=== PATIENT | female | born 1975 | race African-American/Black ===

== ENCOUNTER 2018-11-05 19:51 | Emergency (ER) | payer SELFPAY ==
[~2018-11-05] VITALS: Ht 170.2 cm; Wt 70.0 kg
[2018-11-05] MEDS ORDERED: SODIUM CHLORIDE 0.9% 1,000 ML IV ONE (20:02)
[2018-11-05] MEDS ORDERED: HALOPERIDOL LACTATE 5MG/ML VIAL IM ONE (20:15)
[2018-11-05] MEDS ORDERED: LORAZEPAM 2MG/ML CPJ IM ONE (20:30)
[2018-11-05] MEDS ORDERED: DIPHENHYDRAMINE 50MG/ML VIAL IM ONE (20:30)
[2018-11-05 20:32] LABS: BASOPHILS % 1.4 % (0.0-2.0); EOSINOPHILS % 2.6 % (0.0-5.0); HEMATOCRIT. 29.5 % (36.0-48.0); HEMOGLOBIN. 8.8 g/dL (12.0-16.0); LYMPHOCYTES % 32.8 % (20.0-50.0); MEAN CORPUSCULAR HEMOGLOBIN 18.8 pg (28.0-32.0); MEAN CORPUSCULAR VOLUME 63.4 fL (81.0-99.0); MEAN PLATELET VOLUME 6.3 fl (7.4-10.4); MONOCYTES % 6.6 % (2.0-8.0); NEUTROPHILS % 56.6 % (40.0-76.0); PLATELET 422 x1000/uL (130-400); RED BLOOD CELL COUNT 4.66 mill/uL (4.2-5.4)
[2018-11-05 20:35] LABS: CHLORIDE 104 mEq/L (98-107)
[2018-11-05 20:37] LABS: HCG SCREEN NEGATIVE
[2018-11-05 20:40] LABS: ETHANOL BLOOD 112 mg/dL
[2018-11-05] MEDS ORDERED: LORAZEPAM 2MG/ML CPJ IV ONE ×2 (21:00→23:45)
[2018-11-05 21:05] LABS: PLATELET ESTIMATE INCREASED
[2018-11-05 22:27] LABS: CLARITY URINE CLEAR (CLEAR); COLOR URINE YELLOW (YELLOW); KETONES URINE NEGATIVE (NEGATIVE); LEUKOCYTE ESTERASE URINE 1+ (NEGATIVE); NITRITE URINE NEGATIVE (NEGATIVE); OCCULT BLOOD URINE TRACE (NEGATIVE); PROTEIN URINE NEGATIVE (NEGATIVE); SPECIFIC GRAVITY URINE 1.011 (1.005-1.030); UROBILINOGEN URINE 0.2 E.U./dL (0.2-1.0)
[2018-11-05 22:52] LABS: *AMPHETAMINES SCREEN URINE NEGATIVE (NEGATIVE); *BARBITURATES SCREEN URINE NEGATIVE (NEGATIVE); METHADONE URINE SCREEN NEGATIVE (NEGATIVE); OPIATES URINE SCREEN NEGATIVE (NEGATIVE)
[2018-11-05 22:54] LABS: *BENZODIAZEPINES SCREEN URINE PRESUMTIVE POSITIVE (NEGATIVE); *COCAINE SCREEN URINE PRESUMTIVE POSITIVE (NEGATIVE); CANNABINOID URINE SCREEN PRESUMTIVE POSITIVE (NEGATIVE); PHENCYCLIDINE URINE SCREEN PRESUMTIVE POSITIVE (NEGATIVE)
[2018-11-05] MEDS ORDERED: CEFTRIAXONE 1 G PREMIX 50 ML IV ONE (23:30)
[2018-11-06] MEDS ORDERED: OLANZAPINE 10 MG/VIAL IM ONE (03:30)
[2018-11-06] MEDS ORDERED: LORAZEPAM 2MG/ML CPJ IV ONE ×2 (04:00→05:15)
[2018-11-06] MEDS ORDERED: LORAZEPAM 2MG/ML CPJ IM ONE ×2 (06:30→10:30)
[2018-11-06 12:15] VITALS: BP 114/68
== END 2018-11-06 13:21 | disposition home or self-care (01) ==
LOC: ER 19:51
DX: F23 Brief psychotic disorder (principal); F10.120 Alcohol abuse with intoxication, uncomplicated; N39.0 Urinary tract infection, site not specified; F12.10 Cannabis abuse, uncomplicated; F14.10 Cocaine abuse, uncomplicated; F13.10 Sedative, hypnotic or anxiolytic abuse, uncomplicated; F16.10 Hallucinogen abuse, uncomplicated; Y90.5 Blood alcohol level of 100-119 mg/100 ml; Z78.1 Physical restraint status
CPT/HCPCS: 36415; 70450; 80053; 80305; 80307; 80320; 80329; 81003; 82962; 84443; 84703; 85025; 87077; 87086; 87186; 96361; 96365; 96372; 96375; 96376; 99284; J0696; J1200; J1630; J2060; J3490; J7030; Z7610; G0480